=== PATIENT | male | born 1965 | race African-American/Black ===

== ENCOUNTER 2018-12-21 16:18 | Emergency (ER) | payer MEDICARE ==
[~2018-12-21] VITALS: Ht 175.3 cm; Wt 72.0 kg
[2018-12-21] MEDS ORDERED: TRAMADOL 50MG TABLET PO ONE (17:00)
[2018-12-21 19:28] VITALS: BP 157/86
== END 2018-12-21 21:24 ==
LOC: ER 16:46
DX: T63.331A Toxic effect of venom of brown recluse spider, accidental (unintentional), initial encounter (principal); M79.89 Other specified soft tissue disorders; Y92.89 Other specified places as the place of occurrence of the external cause; M25.562 Pain in left knee; I10 Essential (primary) hypertension; F32.9 Major depressive disorder, single episode, unspecified; Z88.8 Allergy status to other drugs, medicaments and biological substances
CPT/HCPCS: 73562; 73610; 99283

== ENCOUNTER 2018-12-27 12:13 | Emergency (ER) | payer MEDICARE ==
[~2018-12-27] VITALS: Ht 177.8 cm; Wt 79.0 kg
[2018-12-27] MEDS ORDERED: IBUPROFEN 600MG TABLET PO ONE (12:45)
[2018-12-27 14:51] VITALS: BP 185/100
== END 2018-12-27 14:59 | disposition home or self-care (01) ==
LOC: ER 12:13
DX: S80.02XA Contusion of left knee, initial encounter (principal); S80.01XA Contusion of right knee, initial encounter; I10 Essential (primary) hypertension; F32.9 Major depressive disorder, single episode, unspecified; Z88.8 Allergy status to other drugs, medicaments and biological substances; W22.8XXA Striking against or struck by other objects, initial encounter; Y93.89 Activity, other specified; Y92.89 Other specified places as the place of occurrence of the external cause; Y99.8 Other external cause status
CPT/HCPCS: 99283

== ENCOUNTER 2019-01-02 02:22 | Emergency (ER) | payer MEDICARE ==
[~2019-01-02] VITALS: Ht 185.4 cm; Wt 100.0 kg
[2019-01-02 03:15] LABS: HEMOGLOBIN. 11.9 g/dL (14.0-18.0); MEAN CORPUSCULAR VOLUME 83.4 fL (80.0-94.0); MEAN PLATELET VOLUME 7.2 fl (7.4-10.4); PLATELET 150 x1000/uL (130-400); RED BLOOD CELL COUNT 3.96 mill/uL (4.7-6.1); RED CELL DISTRIBUTION WIDTH 15.1 % (11.6-14.6)
[2019-01-02 03:20] LABS: CHLORIDE 104 mEq/L (98-107)
[2019-01-02 05:14] LABS: PLATELET ESTIMATE NORMAL
[2019-01-02 05:57] VITALS: BP 126/70
== END 2019-01-02 07:48 | disposition home or self-care (01) ==
LOC: ER 02:22
DX: S90.862A Insect bite (nonvenomous), left foot, initial encounter (principal); L03.116 Cellulitis of left lower limb; F32.9 Major depressive disorder, single episode, unspecified; I10 Essential (primary) hypertension; F20.9 Schizophrenia, unspecified; Z88.1 Allergy status to other antibiotic agents; Z88.8 Allergy status to other drugs, medicaments and biological substances; W57.XXXA Bitten or stung by nonvenomous insect and other nonvenomous arthropods, initial encounter; Y93.89 Activity, other specified; Y92.89 Other specified places as the place of occurrence of the external cause; Y99.8 Other external cause status
CPT/HCPCS: 36415; 80048; 93971; 99284

== ENCOUNTER 2019-01-02 16:47 | Emergency (ER) | payer MEDICARE ==
[~2019-01-02] VITALS: Ht 182.9 cm; Wt 102.0 kg
[2019-01-02] MEDS ORDERED: IBUPROFEN 600MG TABLET PO ONE (17:30)
[2019-01-02 22:22] VITALS: BP 125/87
== END 2019-01-02 22:24 | disposition home or self-care (01) ==
LOC: ER 17:00
DX: H92.02 Otalgia, left ear (principal); I11.9 Hypertensive heart disease without heart failure; Z88.1 Allergy status to other antibiotic agents; Z88.8 Allergy status to other drugs, medicaments and biological substances
CPT/HCPCS: 99283

== ENCOUNTER 2019-01-03 07:50 | Emergency (ER) | payer MEDICARE ==
[~2019-01-03] VITALS: Ht 182.9 cm; Wt 95.0 kg
[2019-01-03] MEDS ORDERED: ACETAMINOPHEN 325MG TABLET PO ONE (09:15)
[2019-01-03 10:00] LABS: EOSINOPHILS % 13.1 % (0.0-5.0); HEMATOCRIT. 33.8 % (42.0-52.0); HEMOGLOBIN. 11.7 g/dL (14.0-18.0); LYMPHOCYTES % 21.7 % (20.0-50.0); MEAN CORPUSCULAR HEMOGLOBIN 29.3 pg (28.0-32.0); MEAN CORPUSCULAR VOLUME 84.4 fL (80.0-94.0); MEAN PLATELET VOLUME 7.2 fl (7.4-10.4); MONOCYTES % 7.3 % (2.0-8.0); NEUTROPHILS % 56.9 % (40.0-76.0); PLATELET 151 x1000/uL (130-400); RED CELL DISTRIBUTION WIDTH 15.1 % (11.6-14.6)
[2019-01-03 10:07] LABS: CHLORIDE 104 mEq/L (98-107)
[2019-01-03 15:55] VITALS: BP 138/100
== END 2019-01-03 15:59 | disposition home or self-care (01) ==
LOC: ER 07:50
DX: G89.29 Other chronic pain (principal); M54.9 Dorsalgia, unspecified; R60.0 Localized edema; I11.9 Hypertensive heart disease without heart failure; Z98.890 Other specified postprocedural states; Z88.1 Allergy status to other antibiotic agents; Z88.8 Allergy status to other drugs, medicaments and biological substances
CPT/HCPCS: 36415; 73590; 83880; 99284

== ENCOUNTER 2019-01-04 18:32 | Emergency (ER) | payer MEDICARE ==
[~2019-01-04] VITALS: Ht 172.7 cm; Wt 83.0 kg
[2019-01-04 18:56] VITALS: BP 148/92
[2019-01-04] MEDS ORDERED: KETOROLAC 60MG/2ML VIAL IM STA (20:29)
[2019-01-04] MEDS ORDERED: TETANUS, DIPHTHERIA, PERTUSSIS VAC/PF 0.5ML (>7YR OLD) IM ONE (20:30)
== END 2019-01-04 22:28 | disposition home or self-care (01) ==
LOC: ER 18:32
DX: M25.551 Pain in right hip (principal); Z88.8 Allergy status to other drugs, medicaments and biological substances; Z88.9 Allergy status to unspecified drugs, medicaments and biological substances
CPT/HCPCS: 90471; 90715; 96372; 99283; J1885